=== PATIENT | male | born 1990 | race Caucasian/White ===

== ENCOUNTER 2021-04-24 12:15 | Emergency (ER) | payer OTHER ==
[~2021-04-24] VITALS: Ht 180.3 cm; Wt 84.1 kg
[2021-04-24] MEDS ORDERED: MORPHINE 4 MG/ML 1ML VIAL/SYRINGE (J2270) IV ONE (12:55)
[2021-04-24] MEDS ORDERED: NS 1,000 ML IV ONE (12:55)
[2021-04-24] MEDS ORDERED: ONDANSETRON 4MG/2ML VIAL IV ONE (12:55)
[2021-04-24] MEDS ORDERED: fentaNYL 100 MCG/2 ML INJECTION IV ONE ×2 (13:10→14:50)
[2021-04-24 13:28] LABS: BASO % 0.3 % (0.0-1.0); EOS # 0.1 10^3/uL (0.0-0.5); EOS % 0.6 % (0.0-3.0); HEMATOCRIT 46.7 % (42.0-52.0); HEMOGLOBIN 15.9 g/dl (13.5-17.5); LYMPH # 1.5 10^3/uL (1.5-5.0); LYMPH % 14.1 % (24.0-44.0); MEAN CORPUSCULAR HEMOGLOBIN 30.2 pg (27.0-33.0); MEAN CORPUSCULAR VOLUME 88.6 fl (80.0-96.0); MONO # 0.8 10^3/uL (0.0-0.8); MONO % 7.1 % (2.0-8.0); NEUTROPHILS # 8.4 10^3/uL (1.5-8.5); NEUTROPHILS % 77.5 % (36.0-66.0); PLATELET COUNT, AUTOMATED 249 10^3/uL (150-450); RED BLOOD COUNT 5.27 10^6/uL (4.30-6.10); WHITE BLOOD COUNT 10.9 10^3/uL (4.0-10.0)
[2021-04-24 13:47] LABS: BLOOD UREA NITROGEN 19 MG/DL (7-18); CALCIUM LEVEL 8.9 MG/DL (8.5-10.1); CARBON DIOXIDE LEVEL 28 MEQ/L (21-32); CHLORIDE LEVEL 106 MEQ/L (98-107); CREATININE FOR GFR 1.13 MG/DL (0.70-1.30); GLOMERULAR FILTRATION RATE > 60.0 (>60); GLUCOSE, FASTING 167 MG/DL (70-100); POTASSIUM SERUM 4.3 MEQ/L (3.5-5.1); SODIUM LEVEL 141 MEQ/L (136-145)
[2021-04-24] MEDS ORDERED: KETOROLAC 30 MG/ML 1ML VIAL IV ONE (14:05)
[2021-04-24] MEDS ORDERED: propofoL 200 MG/20 ML VIAL IV.PROC PRN (14:25)
[2021-04-24] MEDS ORDERED: NS 1,000 ML IV SCH (14:25)
[2021-04-24] MEDS ORDERED: KETAMINE HCL 200 MG/20 ML VIAL IV ONE (14:25)
[2021-04-24] MEDS ORDERED: propofoL 200 MG/20 ML VIAL IV ONE (14:50)
[2021-04-24] MEDS ORDERED: HYDR-3713 PO (15:26)
[2021-04-24] MEDS ORDERED: NORCO, ANEXSIA 5/325MG TABLET (HYDROcodone/ACETAMINOPHEN) PO ONE (15:35)
[2021-04-24 15:55] VITALS: BP 149/82
== END 2021-04-24 16:00 | disposition home or self-care (01) ==
LOC: M ED 12:15
DX: S52.531A Colles' fracture of right radius, initial encounter for closed fracture (principal); V00.311A Fall from snowboard, initial encounter; Y92.89 Other specified places as the place of occurrence of the external cause; Y93.23 Activity, snow (alpine) (downhill) skiing, snowboarding, sledding, tobogganing and snow tubing; Y99.9 Unspecified external cause status
CPT/HCPCS: 25605; 73080; 73110; 73130; 80048; 85025; 93041; 94760; 96361; 96374; 96375; 96376; 99285; J1885; J2405; J3010

== ENCOUNTER 2021-04-26 14:38 | Emergency (ER) | payer OTHER ==
[~2021-04-26] VITALS: Ht 182.9 cm; Wt 89.6 kg
[2021-04-26 14:38] VITALS: BP 150/86
[~2021-04-26 14:38] MED LIST: HYDR-3713 PO
[2021-04-26] MEDS ORDERED: IBUP200C25 PO (15:00)
[2021-04-26] MEDS ORDERED: HYDR-3713 PO (17:09)
[2021-04-26] MEDS ORDERED: NORCO, ANEXSIA 5/325MG TABLET (HYDROcodone/ACETAMINOPHEN) PO ONE (17:10)
== END 2021-04-26 17:35 | disposition home or self-care (01) ==
LOC: M ED 14:38
DX: Z76.0 Encounter for issue of repeat prescription (principal)